=== PATIENT | male | born 1980 | race African-American/Black ===

== ENCOUNTER 2019-12-28 15:41 | Inpatient (IN) | payer MEDICARE ==
[~2019-12-28] VITALS: Ht 162.6 cm; Wt 65.9 kg
--- NOTE | 2019-12-28 16:06 | NUR ---
FINGERSTICK BLOOD SUGAR 249
[2019-12-28 16:30] LABS: BASOPHILS 0.2 % (0-2); EOSINOPHILS 0.1 % (0-7); HEMATOCRIT 55.1 % (42.0-54.0); HEMOGLOBIN 17.8 g/dL (13.5-17.5); IMMATURE GRANULOCYTES 0.3 % (0-5); LYMPHOCYTES 13.6 % (15-50); MCH 27.1 pg (26.0-34.0); MCHC 32.3 g/dL (31.0-37.0); MEAN PLATELET VOLUME 11.2 fL (7.4-10.4); NEUTROPHILS 80.8 % (40-80); PLATELET COUNT 211 10x3/uL (130-400); RDW 15.4 % (11.5-14.5); WBC 12.3 10x3/uL (4.8-10.8)
[2019-12-28 16:34] LABS: RBC 6.56 10x6/uL (4.20-6.10)
[2019-12-28 16:49] LABS: CALC OSMOLALITY 275 mosm/kg (275-300); CARBON DIOXIDE 23.8 mmol/L (21.0-32.0); CHLORIDE - SERUM 97 mmol/L (98-107); CREATININE - SERUM 1.3 mg/dL (0.6-1.3); GLUCOSE 268 mg/dL (74-106); POTASSIUM - SERUM 4.2 mmol/L (3.5-5.1); SODIUM 132 mmol/L (136-145); UREA NITROGEN 17 mg/dL (7-18); eGFR NON AFRICAN AMERICAN 65 mL/min (90-120)
[2019-12-28 16:58] LABS: ALBUMIN 3.5 g/dL (3.4-5.0); ALKALINE PHOSPHATASE 148 U/L (30-120); ALT (SGPT) 29 U/L (10-68); AMYLASE - SERUM 117 U/L (25-115); BILIRUBIN - TOTAL 1.05 mg/dL (0.2-1.3); LIPASE 296 U/L (73-393); PROTEIN - SERUM 8.1 g/dL (6.4-8.2)
[2019-12-28 17:04] LABS: TROPONIN-I < 0.017 ng/mL (0.000-0.060)
--- NOTE | 2019-12-28 22:24 | NUR ---
NS INFUSING 999 ML/H WITH 500 ML REMAINING ON TRANSFER TO ROOM
[2019-12-28 22:31] VITALS: BP 136/94
--- NOTE | 2019-12-28 22:38 | NUR ---
URINE TO LAB
--- NOTE | 2019-12-28 22:38 | NUR ---
COVID SWAB TO LAB
--- NOTE | 2019-12-28 23:06 | NUR ---
PT ARRIVED TO FLOOR VIA WHEELCHAIR A/O X4. RR EVEN AND UNLABORED. VITALS STABLE. FLUIDS RUNNING AT 200ML/HR. PT COMPLAINS OF PAIN 8/10 IN ABDOMEN WITH NAUSEA. PRN MEDICATION GIVEN. PT DENIES ANY FURTHER NEEDS AT THIS TIME. BED LOW CALL LIGHT WITHIN REACH. WILL CONTINUE TO MONITOR.
[2019-12-28 23:39] LABS: BILIRUBIN NEGATIVE (NEGATIVE); EPITHELIAL CELLS 0-5 /hpf (0-5); KETONE MODERATE mg/dL (NEGATIVE); NITRITE NEGATIVE (NEGATIVE); UROBILINOGEN NORMAL mg/dL (< 2); WHITE CELLS - URINE 0-5 HPF (0-1)
[2019-12-28 23:40] LABS: BACTERIA FEW HPF (NONE SEEN)
[2019-12-29] VITALS: BP 164/92
[2019-12-29] MEDS ORDERED: HYDROCODON-ACE1 EAC7 PO (03:32)
[2019-12-29] MEDS ORDERED: NOVOLOG100 UNIT/1 SC (06:08)
[2019-12-29] MEDS ORDERED: LEVEMIR IN100 UNITS/ SC (06:09)
[2019-12-29] MEDS ORDERED: KEPPRA250 MG PO (06:11)
[2019-12-29 06:59] VITALS: BP 134/85
[2019-12-29 07:01] LABS: BASOPHILS 0.1 % (0-2); EOSINOPHILS 0.6 % (0-7); HEMATOCRIT 48.9 % (42.0-54.0); HEMOGLOBIN 15.4 g/dL (13.5-17.5); IMMATURE GRANULOCYTES 0.5 % (0-5); LYMPHOCYTES 17.2 % (15-50); MCH 26.6 pg (26.0-34.0); MCHC 31.5 g/dL (31.0-37.0); MCV 84.3 fL (80.0-100.0); MEAN PLATELET VOLUME 11.8 fL (7.4-10.4); MONOCYTES 7.5 % (2-11); NEUTROPHILS 74.1 % (40-80); PLATELET COUNT 230 10x3/uL (130-400); RDW 15.7 % (11.5-14.5); WBC 13.6 10x3/uL (4.8-10.8)
[2019-12-29 07:14] LABS: ALBUMIN 2.8 g/dL (3.4-5.0); BILIRUBIN - TOTAL 1.1 mg/dL (0.2-1.3); CALCIUM 8.5 mg/dL (8.5-10.1); CREATININE - SERUM 1.2 mg/dL (0.6-1.3); MAGNESIUM - SERUM 1.8 mg/dL (1.8-2.4); POTASSIUM - SERUM 4.4 mmol/L (3.5-5.1); PROTEIN - SERUM 6.6 g/dL (6.4-8.2)
[2019-12-29 07:15] LABS: CARBON DIOXIDE 17.4 mmol/L (21.0-32.0)
--- NOTE | 2019-12-29 09:31 | NUR ---
HE IS ALERT, STATES "FEELING BETTER" NO NAUSEA OR VOMITING. EDUCATED HIM ABOUT USING THE URNIAL SO WE CAN MEASURE HIS OUTPUT. THE CALL LIGHT IS WITHIN REACH.
[2019-12-29 11:11] LABS: AMYLASE - SERUM 63 U/L (25-115); LIPASE 128 U/L (73-393)
[2019-12-29 12:05] VITALS: BP 145/78
[2019-12-29 13:36] VITALS: BMI 24.9
--- NOTE | 2019-12-29 14:45 | NUR ---
HE IS WALKING IN THE HALLWAY WITH A MASK ON. EDUCATED HIM TO STAY ON THIS UNIT. HE HAS ANOTHER MALE VISITING HIM.
[2019-12-29 16:20] VITALS: BP 140/85; BP 91/38
[2019-12-30] VITALS: BP 135/84
[2019-12-30 04:00] VITALS: BP 128/81
--- NOTE | 2019-12-30 05:38 | NUR ---
1944) REC'D TO ROOM 2217 AMB. WITH NURSE. DENIES ANY DISCOMFORT AT PRESENT TIME.WILL CONTINUE TO MONITOR AND FOLLOW CURRENT PLAN OF CARE
--- NOTE | 2019-12-30 06:01 | NUR ---
I have reviewed this patient and I concur with the Shift Assessment completed by the Licensed Practical Nurse today this shift.
[2019-12-30 06:51] LABS: BASOPHILS 0.4 % (0-2); EOSINOPHILS 3.1 % (0-7); HEMATOCRIT 45.1 % (42.0-54.0); HEMOGLOBIN 14.7 g/dL (13.5-17.5); IMMATURE GRANULOCYTES 0.4 % (0-5); MCH 26.9 pg (26.0-34.0); MCHC 32.6 g/dL (31.0-37.0); MCV 82.6 fL (80.0-100.0); MEAN PLATELET VOLUME 11.3 fL (7.4-10.4); MONOCYTES 10.3 % (2-11); NEUTROPHILS 50.8 % (40-80); PLATELET COUNT 206 10x3/uL (130-400); RBC 5.46 10x6/uL (4.20-6.10); RDW 15.3 % (11.5-14.5)
--- NOTE | 2019-12-30 07:41 | NUR ---
AWAKE AND WITHOUT DISTRESS. HOPES TO DC TODAY. DENIES NEEDS
[2019-12-30 07:59] LABS: CHLORIDE - SERUM 104 mmol/L (98-107); CREATININE - SERUM 0.9 mg/dL (0.6-1.3); MAGNESIUM - SERUM 1.6 mg/dL (1.8-2.4); PHOSPHOROUS 3.3 mg/dL (2.5-4.9); SODIUM 139 mmol/L (136-145); eGFR NON AFRICAN AMERICAN > 90 mL/min (90-120)
[2019-12-30 08:14] LABS: CALC OSMOLALITY 276 mosm/kg (275-300); CARBON DIOXIDE 24.9 mmol/L (21.0-32.0); GLUCOSE 124 mg/dL (74-106); POTASSIUM - SERUM 3.3 mmol/L (3.5-5.1); UREA NITROGEN 6 mg/dL (7-18)
--- NOTE | 2019-12-30 08:32 | NUR ---
PATIENT MAG 1.6 AND K+ IS 3.3 WILL REPLACE PER PROTOCOL
[2019-12-30 09:10] VITALS: BP 159/90
[2019-12-30 12:13] VITALS: BP 148/91
--- NOTE | 2019-12-30 14:32 | MORECARE ---
CASE MANAGEMENT DISCHARGE SUMMARY PATIENT: MARYCRUZ VIZCARRA UNIT: [id number] ADM DATE: 12/28/19 AGE: 39 : 82 SEX: M ROOM/BED: D.2217 AUTHOR: VENUS FOSTER PHYSICIAN: REFERRING PHYSICIAN: MARY AMADO DO DATE OF SERVICE: 12/30/19 Discharge Plan Patient Name: MARYCRUZ VIZCARRA Facility: [facility]:[place] : 1980 Planned Disposition: Home Anticipated Discharge Date: Discharge Date: Expected LOS: Initial Reviewer: [email or web address] Initial Review Date: 12/28/2019 Generated: 12/30/19 3:31 pm DCPIA - Discharge Planning Initial Assessment Updated by [email or web address]: Gilda Jerome on 12/30/19 2:28 pm * Is the patient Alert and Oriented? Yes * PCP A IN [place] * Pharmacy [facility] * Preadmission Environment Home with Family * ADLs Independent * Equipment Glucometer * Verbal permission to speak to the caregivers and representatives has been obtained from the patient. N/A * Community resources currently utilized None * Additional services required to return to the preadmission environment? No * Can the patient safely return to the preadmission environment? Yes * Has this patient been hospitalized within the prior 30 days at any hospital? No Patient Name: MARYCRUZ VIZCARRA Page [id number] at 1432 All edits/amendments must be made on the electronic document DICTATION DATE: 12/30/19 143 HEELER: MARCUS 12/30/19 143 RPT#: [id number] DC DATE: STATUS: ADM IN [facility] [address] [place] [address] END OF REPORT
--- NOTE | 2019-12-30 14:39 | MORECARE ---
CASE MANAGEMENT DISCHARGE SUMMARY PATIENT: MARYCRUZ VIZCARRA UNIT: [id number] ADM DATE: 12/28/19 AGE: 39 : 82 SEX: M ROOM/BED: D.2217 AUTHOR: KRISTIN,DOC PHYSICIAN: REFERRING PHYSICIAN: MARY AMADO DO DATE OF SERVICE: 12/30/19 Discharge Plan Patient Name: MARYCRUZ VIZCARRA Facility: [facility]:[place] : 1980 Planned Disposition: Home Anticipated Discharge Date: Discharge Date: Expected LOS: Initial Reviewer: [email or web address] Initial Review Date: 12/28/2019 Generated: 12/30/19 3:39 pm Comments DCP- Discharge Planning Updated by [id number]: Gilda Jerome on 12/30/19 1:[address] Patient Name: MARYCRUZ VIZCARRA Admission Status: ER Accout number: [id number] Admission Date: 12-28-2019 : 1980 Admission Diagnosis:DEHYDRATION Attending: MARY AMADO Current LOS: 2 Anticipated DC Date: Planned Disposition: Home Primary Insurance: MEDICARE A & B Discharge Planning Comments: CM met with patient to complete initial dc planning assessment. CM educated patient on the CM role and verbal consent given by patient to complete assessment. Patient lives in [place], but has family here that he is here visiting and staying with. At discharge patient plans to return to his brothers home where he is independent with his care and feels this is a safe discharge. CM discussed availability of home health, rehab services, and medical equipment. Patient denied known discharge needs at this time. He does have a glucometer that he uses. IMM served and explained. CM will continue to follow and will assist as needed with dc plans/needs. Insulation Sprayer: Gilda Jerome DCPIA - Discharge Planning Initial Assessment Updated by [email or web address]: Gilda Jerome on 12/30/19 2:28 pm * Is the patient Alert and Oriented? Yes * PCP [facility] IN [place] * Pharmacy [facility] * Preadmission Environment Home with Family * ADLs Independent * Equipment Glucometer * Verbal permission to speak to the caregivers and representatives has been obtained from the patient. N/A * Community resources currently utilized None * Additional services required to return to the preadmission environment? No * Can the patient safely return to the preadmission environment? Yes * Has this patient been hospitalized within the prior 30 days at any hospital? No Coverage Notice Reviewer: [id number] Rico Jerome Notice Issued Date-Time: 12/30/2019 14:20 Notice Type: IM Discharge Notice Notice Delivered To: Patient Relationship to Patient: Historiography Professor Name: Delivery Method: HAND - Hand Delivered Ana M Days: Prior Verbal Notification: Recipient Understood Notice: Yes Recipient Signature: Yes Med Rec Note Co-signed by Attending: Coverage Notice Comment: imm served and explained Last DP export: 12/30/19 1:32 p Patient Name: MARYCRUZ VIZCARRA Page [id number] at 1439 All edits/amendments must be made on the electronic document DICTATION DATE: 12/30/191438 CRIMINOLOGY PROFESSOR: MARCUS 12/30/19 1439 RPT#: [id number] DC DATE: STATUS: ADM IN [facility] [address] [place] [address] END OF REPORT
[2019-12-30 16:17] VITALS: BP 145/92
[2019-12-30 20:00] VITALS: BP 133/79
[2019-12-31] VITALS: BP 127/74
--- NOTE | 2019-12-31 00:32 | NUR ---
REC'D. WALKING ROUNDS CHGE. OF SHIFT.IN BED TALKING ON PHONE STATES FSBS WAS 70 AT DINNER NURSE DI NOT GIVE ME MY INSULIN. SHOWED PATIENT SLIDING SCALE IN WHAT WE FOLLOW ORDERED BY TO GIVE YOUR INSULIN.INSTRUCTED TO TALKE TO DR ABOUT INSULIN ROUTINE AT HOME VS HERE.FSBS 267 REGULAR 10UNITS GIVEN.ACCORDING TO SLIDING SCALE.REFUSED LANTUS AND THAT IS NOT THE KIND I TAKE AT HOME.WILL CONTINUE TO MONITOR FOR ANY CHGES AND FOLLOW CURRENT PLAN OF CARE
[2019-12-31 04:00] VITALS: BP 138/76
[2019-12-31 07:06] LABS: BASOPHILS 0.3 % (0-2); HEMATOCRIT 44.3 % (42.0-54.0); HEMOGLOBIN 14.4 g/dL (13.5-17.5); LYMPHOCYTES 29.8 % (15-50); MCH 26.8 pg (26.0-34.0); MCHC 32.5 g/dL (31.0-37.0); MCV 82.5 fL (80.0-100.0); MEAN PLATELET VOLUME 10.8 fL (7.4-10.4); MONOCYTES 11.2 % (2-11); NEUTROPHILS 55.7 % (40-80); PLATELET COUNT 206 10x3/uL (130-400); RBC 5.37 10x6/uL (4.20-6.10); RDW 15.2 % (11.5-14.5); WBC 6.3 10x3/uL (4.8-10.8)
--- NOTE | 2019-12-31 07:15 | NUR ---
RECEIVED BEDSIDE REPORT. PT SITTING UP IN BED, A&O X4. DENIES PAIN. PIV IN RIGHT FOREARM, PATENT, NO REDNESS OR SWELLING. PT REFUSED TO WEAR SCDs. PT ABLE TO AMBULATE BY SELF. TELEMETRY IN PLACE, 82 SR. EDUCATED PT ON CL AND NEEDS, VERBALIZED UNDERSTANDING. BED LOW, RAILS X2. CL IN REACH, WILL CONTINUE TO MONITOR.
[2019-12-31 08:22] LABS: CALC OSMOLALITY 276 mosm/kg (275-300); CALCIUM 8.1 mg/dL (8.5-10.1); CARBON DIOXIDE 24.3 mmol/L (21.0-32.0); CHLORIDE - SERUM 104 mmol/L (98-107); CREATININE - SERUM 0.9 mg/dL (0.6-1.3); GLUCOSE 136 mg/dL (74-106); MAGNESIUM - SERUM 1.6 mg/dL (1.8-2.4); POTASSIUM - SERUM 3.3 mmol/L (3.5-5.1); SODIUM 139 mmol/L (136-145); UREA NITROGEN 5 mg/dL (7-18); eGFR NON AFRICAN AMERICAN > 90 mL/min (90-120)
[2019-12-31 08:24] LABS: PHOSPHOROUS 4.2 mg/dL (2.5-4.9)
[2019-12-31 09:25] VITALS: BP 138/87
--- NOTE | 2019-12-31 12:45 | NUR ---
PT STATES THAT HE IS LEAVING AT TWO O'CLOCK AND HE HAS AN APPOINTMENT THAT HE HAS TO TAKE HIS MOM TO AND HE WILL BE LEAVING AT THEN NO MATTER WHAT. I EDUCATED PT THAT I CAN TRY MY BEST TO HAVE HIM D/C BY TWO, VERBALIZED UNDERSTANDING, STATED HE DIDNT CARE WHAT NEEDED TO BE DONE AND THAT HE WOULD BE GETTING UP AND WALKING OUT AT TWO. WILL TRY TO CONTACT MD AND HAVE D/C ORDER PUT IN.
[2019-12-31 13:10] VITALS: BP 153/96
[2019-12-31 13:14] VITALS: BP 138/87; Ht 162.6 cm; Wt 65.9 kg
--- NOTE | 2019-12-31 13:40 | NUR ---
EDUCATED PT ON DISCHARGE INSTRUCTIONS, MEDICATIONS, AND FOLLOW UP APPOINTMENT. PT VERBALIZED UNDERSTANDING AND SIGNED PAPERWORK. REMOVED PIV FROM RIGHT FOREARM, CATHETER INTACT, NO REDNESS OR SWELLING, PT TOLERATED WELL. ESCORTED PT TO FRONT ENTRANCE VIA WHEELCHAIR.
--- NOTE | 2020-01-01 08:13 | MORECARE ---
CASE MANAGEMENT DISCHARGE SUMMARY PATIENT: MARYCRUZ VIZCARRA UNIT: [id number] ADM DATE: 12/28/19 AGE: 39 : 82 SEX: M ROOM/BED: D.2217 AUTHOR: KRISTIN,DOC PHYSICIAN: REFERRING PHYSICIAN: MARY AMADO DO DATE OF SERVICE: 01/01/20 Discharge Plan Patient Name: MARYCRUZ VIZCARRA Facility: [facility]:[place] : 1980 Planned Disposition: Home Anticipated Discharge Date: Discharge Date: 12/31/2019 Expected LOS: 0 Initial Reviewer: [email or web address] Initial Review Date: 12/28/2019 Generated: 01/01/20 9:12 am Comments DCP- Discharge Planning Updated by [id number]: Gilda Jerome on 12/30/19 1:[address] Patient Name: MARYCRUZ VIZCARRA Admission Status: ER Accout number: [id number] Admission Date: 12-28-2019 : 1980 Admission Diagnosis:DEHYDRATION Attending: MARY AMADO Current LOS: 2 Anticipated DC Date: Planned Disposition: Home Primary Insurance: MEDICARE A & B Discharge Planning Comments: CM met with patient to complete initial dc planning assessment. CM educated patient on the CM role and verbal consent given by patient to complete assessment. Patient lives in [place], but has family here that he is here visiting and staying with. At discharge patient plans to return to his brothers home where he is independent with his care and feels this is a safe discharge. CM discussed availability of home health, rehab services, and medical equipment. Patient denied known discharge needs at this time. He does have a glucometer that he uses. IMM served and explained. CM will continue to follow and will assist as needed with dc plans/needs. Leather Drier: Gilda Jerome DCPIA - Discharge Planning Initial Assessment Updated by [id number]: Gilda Jerome on 12/30/19 2:28 pm * Is the patient Alert and Oriented? Yes * PCP [facility] IN [place] * Pharmacy [facility] * Preadmission Environment Home with Family * ADLs Independent * Equipment Glucometer * Verbal permission to speak to the caregivers and representatives has been obtained from the patient. N/A * Community resources currently utilized None * Additional services required to return to the preadmission environment? No * Can the patient safely return to the preadmission environment? Yes * Has this patient been hospitalized within the prior 30 days at any hospital? No Coverage Notice Reviewer: [id number] Rico Jerome Notice Issued Date-Time: 12/30/2019 14:20 Notice Type: IM Discharge Notice Notice Delivered To: Patient Relationship to Patient: Cryptanalyst Name: Delivery Method: HAND - Hand Delivered Ana M Days: Prior Verbal Notification: Recipient Understood Notice: Yes Recipient Signature: Yes Med Rec Note Co-signed by Attending: Coverage Notice Comment: imm served and explained Last DP export: 12/30/19 1:39 p Patient Name: MARYCRUZ VIZCARRA Page [id number] at 0813 All edits/amendments must be made on the electronic document DICTATION DATE: 01/01/20811 MOLD MAKER PLASTIC MOLDS: MARCUS 01/01/20811 RPT#: [id number] DC DATE:12/31/19 STATUS: DIS IN [facility] [address] [place] [address] END OF REPORT
== END 2019-12-31 14:07 | disposition home or self-care (01) | DRG 641 ==
LOC: D.ER 15:41 → D.M2 21:56 → D.MS 12-29 20:06
PROVIDERS: Family Medicine; ADMIT Family Medicine; ATTEND Family Medicine
DX: E86.0 Dehydration (principal); R11.2 Nausea with vomiting, unspecified; E10.9 Type 1 diabetes mellitus without complications; D64.9 Anemia, unspecified; R10.9 Unspecified abdominal pain